=== PATIENT | female | born 1965 | race Caucasian/White ===

== ENCOUNTER → 2020-09-11 | Outpatient (CLI) | payer BC ==
[2020-09-11 09:12] LABS: HEMOGLOBIN 12.9 gm/dl (12.3-15.3); RED BLOOD COUNT 4.19 M/UL (4.00-5.10); WHITE BLOOD COUNT 10.5 K/UL (4.5-11.0)
[2020-09-11 10:04] LABS: BUN/CREATININE RATIO 17 (0-10)
== END ==
LOC: LAB 08:31
DX: D70.1 Agranulocytosis secondary to cancer chemotherapy (principal); C50.312 Malignant neoplasm of lower-inner quadrant of left female breast; T45.1X5A Adverse effect of antineoplastic and immunosuppressive drugs, initial encounter
CPT/HCPCS: 36415; 80053; 83615; 85025

== ENCOUNTER → 2021-01-24 | Outpatient (CLI) | payer BC | LOC: CT 14:24 | DX: I73.9 Peripheral vascular disease, unspecified (principal) | CPT/HCPCS: 75635; Q9967 ==